=== PATIENT | male | born 1975 | race Caucasian/White ===

== ENCOUNTER 2016-06-25 16:57 | Inpatient (IN) ==
[2016-06-25] MEDS ORDERED: ONDANSETRON 4 MG/2 ML VIAL IV STA (17:12)
[2016-06-25] MEDS ORDERED: HYDROmorphone 2 MG/1 ML VIAL ONE ×2 (17:12→17:49)
[2016-06-25] MEDS ORDERED: ONDANSETRON 4 MG/2 ML VIAL ONE (17:12)
[2016-06-25] MEDS ORDERED: HYDROmorphone 2 MG/1 ML VIAL IV STA ×2 (17:12→17:48)
[2016-06-25] MEDS ORDERED: DIPH/TET/ACEL PERT BOOSTER VACCINE 0.5 ML VIAL IM ONE (17:13)
[2016-06-25] MEDS ORDERED: ceFAZolin 1,000 MG VIAL ONE (17:13)
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
[2016-06-25 17:58] LABS: Basophils % 0.3 % (0.0-0.8); Eosinophils # 0.2 10*3/uL (0.0-0.87); Eosinophils % 1.3 % (0.00-10.9); Hemoglobin 16.7 GM/DL (14.0-18.0); Immature Granulocytes % 0.5 %; Immature Granulocytes Absolute 0.06 #; Lymphocytes # 3.8 10*3/uL (1.4-4.0); Lymphocytes % 32.8 % (21.2-54.2); Mean Corpuscular HGB Conc 35.5 GM/DL (32-36); Mean Corpuscular Hemoglobin 30 PG (27-34); Mean Corpuscular Volume 84.8 FL (87-102); Mean Platelet Volume 9.8 FL (9.6-12.0); Monocytes # 0.7 10*3/uL (0.11-0.8); Monocytes % 5.8 % (1.7-12.7); Neutrophils # 6.9 10*3/uL (1.4-7.4); Neutrophils % 59.3 % (38.7-73.9); Platelet Count 296 T/CUMM (130-400); Red Blood Count 5.54 MC/CUMM (3.8-5.5); Red Cell Distribution Width 12.2 % (9.3-17.3); White Blood Count 11.7 T/CUMM (4-12)
[2016-06-25 18:07] LABS: Calcium 9.5 MG/DL (8.5-10.1); Osmolality,Calculated 281.3 MOS/KG (273-304); Potassium 4.1 MMOL/L (3.5-5.1)
[2016-06-25] MEDS ORDERED: FAMOTIDINE 20 MG/2 ML VIAL IV ONE ×2 (18:17→18:20)
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
[2016-06-25] MEDS ORDERED: GENTAMICIN INJ 160 MG in SODIUM CHLORIDE 0.9% 100 ML IV STA (18:33)
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
--- NOTE | 2016-06-25 18:44 | XRay Report ---
Exam: XR chest 1V portable Indication: Preop Comparison study: None Findings: The heart, mediastinum, and bony structures are within normal limits. Minimal perihilar interstitial opacities are noted which are nonspecific but may represent atelectasis or perihilar infiltrates. There is no pneumothorax or pleural effusion identified. Impression: Mild central perihilar interstitial prominence may represent edema changes or infiltrates. PROCEDURE INTERPRETED AT [facility] DEPARTMENT OF RADIOLOGY Final Report Signed by: Hector Sandoval
[2016-06-25] MEDS ORDERED: PROPOFOL 200 MG/20 ML VIAL IV ONE (18:50)
[2016-06-25] MEDS ORDERED: NEOSTIGMINE 10 MG/10 ML VIAL ONE (18:50)
[2016-06-25] MEDS ORDERED: GLYCOPYRROLATE 0.4 MG/2 ML VIAL ONE (18:50)
[2016-06-25] MEDS ORDERED: LIDOCAINE 1% 5 ML VIAL ONE (18:50)
[2016-06-25] MEDS ORDERED: ROCURONIUM 100 MG/10 ML VIAL IV ONE (18:50)
[2016-06-25] MEDS ORDERED: SUCCINYLCHOLINE 200 MG/10 ML VIAL ONE (18:50)
[2016-06-25] MEDS ORDERED: GENTAMICIN 80 MG/2 ML VIAL ONE (19:19)
[2016-06-25] MEDS ORDERED: HYDROmorphone 2 MG/1 ML VIAL IV PRN ×2 (21:05→21:41)
[2016-06-25] MEDS ORDERED: ONDANSETRON 4 MG/2 ML VIAL IV PRN ×2 (21:05→21:41)
[2016-06-25] MEDS ORDERED: MAGNESIUM HYDROXIDE SUSP 30 ML UDCUP PO PRN ×2 (21:05→21:10)
[2016-06-25] MEDS ORDERED: ACETAMINOPHEN 325 MG TABLET PO PRN (21:05)
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
[2016-06-25] MEDS ORDERED: MIDAZOLAM 2 MG/2 ML VIAL ONE (21:22)
[2016-06-25] MEDS ORDERED: DESFLURANE 1 UNIT/15 MINUTE INH ONE (21:22)
[2016-06-25] MEDS ORDERED: fentaNYL 100 MCG/2 ML VIAL ONE ×2 (21:23)
[2016-06-25] MEDS ORDERED: ACETAMINOPHEN 1,000 MG/100 ML VIAL IV ONE (21:23)
--- NOTE | 2016-06-25 21:26 | XRay Report ---
XR tibia fibula RT Clinical Information: ORIF RIGHT TIB /FIB Dr. Meraz Total fluoroscopy time: 51 seconds Findings: Fluoroscopic images of the right lower leg demonstrate new orthopedic hardware in place. Hardware appears intact without evidence of acute complication. Images were evaluated by the attending surgeon at the time of the procedure and deemed appropriate. Impression: Intraoperative fluoroscopy as detailed above. PROCEDURE INTERPRETED AT [facility] DEPARTMENT OF RADIOLOGY Final Report Signed by: Hector Sandoval
[2016-06-25] MEDS ORDERED: MORPHINE PCA 30 MG/30 ML SYRINGE IV SCH (21:30)
--- NOTE | 2016-06-25 22:13 | XRay Report ---
XR tibia fibula RT Clinical Information: Postop Comparison: Radiograph dated 04/24/2017 at 5:16 PM Findings/Conclusion: Intramedullary nail is now noted within the tibia with proximal and distal interlocking screws. Hardware appears intact. Fracture fragments are in near-anatomic alignment. No additional fractures are identified. PROCEDURE INTERPRETED AT [facility] DEPARTMENT OF RADIOLOGY Final Report Signed by: Hector Sandoval
[2016-06-26] MEDS: LACTATED RINGERS 1,000 ML IV SCH ×2 (02:03→22:05)
[2016-06-26] MEDS: ACETAMINOPHEN 500 MG TABLET PO SCH ×4 (02:04→20:12)
[2016-06-26 04:00] LABS: Basophils % 0.3 % (0.0-0.8); Eosinophils # 0.1 10*3/uL (0.0-0.87); Eosinophils % 0.5 % (0.00-10.9); Hemoglobin 13.5 GM/DL (14.0-18.0); Immature Granulocytes % 0.4 %; Immature Granulocytes Absolute 0.05 #; Lymphocytes # 3.8 10*3/uL (1.4-4.0); Lymphocytes % 27.5 % (21.2-54.2); Mean Corpuscular HGB Conc 34.6 GM/DL (32-36); Mean Corpuscular Hemoglobin 30 PG (27-34); Mean Corpuscular Volume 86.3 FL (87-102); Mean Platelet Volume 9.2 FL (9.6-12.0); Monocytes % 6.9 % (1.7-12.7); Neutrophils # 8.9 10*3/uL (1.4-7.4); Neutrophils % 64.4 % (38.7-73.9); Platelet Count 248 T/CUMM (130-400); Red Blood Count 4.52 MC/CUMM (3.8-5.5); Red Cell Distribution Width 12.3 % (9.3-17.3); White Blood Count 13.8 T/CUMM (4-12)
--- NOTE | 2016-06-26 07:27 | Orthopedic Progress Note ---
Assessment and Plan (1) Open fracture of right tibia Status: Acute Assessment and plan: DVT prophylaxis Continue Scheduled antibiotics for open fracture Out of bed with therapy, touchdown weightbearing right lower extremity Plan discharge home tomorrow Current Visit: Yes Qualifiers: Encounter type: initial encounter Tibia location: shaft Open fracture type: open type I or II Fracture morphology: oblique Fracture alignment: displaced Qualified Code(s): S82.231B - Displaced oblique fracture of shaft of right tibia, initial encounter for open fracture type I or II Orthopedics - Subjective Interval history: Patient's pain is currently controlled, getting therapy. Exam is consistent serosanguineous drainage from the distal wound. He is sensate in the foot, has a 2+ dorsalis pedis pulse. Exam - Constitutional Vitals: Period Temp Pulse Resp BP Sys/Montes Pulse Ox Last 24 Hr 96 F-98.5 F 20-104 16-20 105-154/61-93 93-100 Results - Labs CBC & BMP: 06/26/16 03:43 06/25/16 17:05
--- NOTE | 2016-06-26 08:31 | EKG Report ---
Stationary ECG Study [facility] ER Test Date: 06/25/2016 6:12:06 PM Pat Name: VANESSA SIMENTAL Department: Room: 320 Gender: M Sous Chef: SHAD : 1975 Requested by: Darian Alvarez Order Number: [id number] Reading MD: ZEB ESCALANTE Intervals [place] Rate: 83 P: 67 TN: 138 QRS: 55 QRSD: 84 T: 53 QT: 339 QTc: 379 Interpretive Statements SINUS RHYTHM Electronically Signed On 06-27-16 22:32:42 MEDIA SERVICES SPECIALIST by ZEB ESCALANTE [email or web address]
[2016-06-26] MEDS: GENTAMICIN INJ 320 MG in SODIUM CHLORIDE 0.9% 100 ML IV SCH (09:57)
[2016-06-26] MEDS ORDERED: ENOXAPARIN 40 MG/0.4 ML SYRINGE SUBCUT SCH (18:00)
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
[2016-06-27 09:06] LABS: Basophils % 0.4 % (0.0-0.8); Eosinophils # 0.1 10*3/uL (0.0-0.87); Eosinophils % 0.6 % (0.00-10.9); Hematocrit 39.1 VOL% (42.0-52.0); Hemoglobin 13.5 GM/DL (14.0-18.0); Immature Granulocytes % 0.3 %; Immature Granulocytes Absolute 0.03 #; Lymphocytes # 1.9 10*3/uL (1.4-4.0); Mean Corpuscular HGB Conc 34.5 GM/DL (32-36); Mean Corpuscular Hemoglobin 30 PG (27-34); Mean Corpuscular Volume 86.7 FL (87-102); Mean Platelet Volume 9.5 FL (9.6-12.0); Monocytes # 0.7 10*3/uL (0.11-0.8); Neutrophils # 7.1 10*3/uL (1.4-7.4); Neutrophils % 72.7 % (38.7-73.9); Platelet Count 235 T/CUMM (130-400); Red Blood Count 4.51 MC/CUMM (3.8-5.5); Red Cell Distribution Width 12.1 % (9.3-17.3); White Blood Count 9.7 T/CUMM (4-12)
[2016-06-27 10:36] VITALS: BP 119/70
[2016-06-27] MEDS: GENTAMICIN INJ 320 MG in SODIUM CHLORIDE 0.9% 100 ML IV SCH (10:40)
== END 2016-06-27 11:55 | disposition home or self-care (01) | DRG 494 ==
LOC: N.ED 16:57 → N.3E 18:48
PROVIDERS: ADMIT Orthopaedic Surgery; ATTEND Orthopaedic Surgery